=== PATIENT | male | born 1970 | race Caucasian/White ===

== ENCOUNTER 2019-04-28 11:54 | Observation (INO) | payer OTHER ==
[~2019-04-28] VITALS: Wt 111.3 kg
[2019-04-28] MEDS ORDERED: NITROGLYCERIN 2% 1 GM OINT PKT TD STA (12:45)
[2019-04-28] MEDS ORDERED: NITROGLYCERIN (SL) 0.4 MG TAB SL PRN (13:00)
[2019-04-28] MEDS ORDERED: ATOR10TA65 PO (13:43)
[2019-04-28] MEDS ORDERED: AMLO-218 PO (13:44)
[2019-04-28] MEDS ORDERED: METF500T24 PO (13:44)
[2019-04-28] MEDS ORDERED: ONDANSETRON 4 MG INJ IV PRN (14:00)
[2019-04-28] MEDS ORDERED: ACETAMINOPHEN 325 MG TAB PO PRN ×2 (14:00→17:00)
[2019-04-28] MEDS ORDERED: METOPROLOL 100 MG TAB PO STA (14:01)
--- NOTE | 2019-04-28 14:40 | ERD ---
ER Documentation Chief Complaint Chief Complaint CHEST PAIN FOR THE PAST WEEK INTERMITTENT. TODAY GOT WORSE. MILD SOB HPI Patient is a 48-year-old male with hypertension and prediabetes who presents with chest pain. He said that he started feeling weak about 1 hour ago. He had shortness of breath and chest pressure. He feels dizzy. He had nausea but no vomiting. The chest pressure was left-sided. It comes and goes. He felt this on as well and almost passed out. The patient said that he would prefer to be seen by Dr. Dunne's cardiology group. Upon review of old medical records this is the patient's first visit to the emergency department. ROS All systems reviewed and are negative except as per history of present illness. Medications Home Meds Reported Medications Amlodipine Besylate* (Norvasc*) 10 Mg Tablet, 10 MG PO DAILY, TAB 04/28/19 Metformin Hcl* (Metformin Hcl*) 500 Mg Tablet, 500 MG PO WITH BREAKFAST, #30 TAB 04/28/19 Atorvastatin Calcium (Atorvastatin Calcium) 10 Mg Tablet, 10 MG PO QHS, #30 TAB 04/28/19 Allergies Allergies: Coded Allergies: aspirin (Verified Allergy, Unknown, 04/28/19) PMhx/Soc Medical and Surgical Hx: pt denies Medical Hx, pt denies Surgical Hx Hx Alcohol Use: Yes Hx Substance Use: No Hx Tobacco Use: Yes Smoking Status: Never smoker FmHx Family History: coronary disease Physical Exam Vitals Vital Signs Date Temp Pulse Resp B/P (MAP) Pulse Ox O2 O2 Flow FiO2 Time Delivery Rate 04/28/19 66 20 132/71 99 Room Air 14:08 (91) 04/28/19 97.7 91 18 163/95 99 11:57 (117) Physical Exam Const: No acute distress Head: Atraumatic Eyes: Normal Conjunctiva ENT: Normal External Ears, Nose and Mouth. Neck: Full range of motion. No meningismus. Resp: Clear to auscultation bilaterally Cardio: Regular rate and rhythm, no murmurs Abd: Soft, non tender, non distended. Normal bowel sounds Skin: No petechiae or rashes Back: No midline or flank tenderness Ext: No cyanosis, or edema Neur: Awake and alert Psych: Normal Mood and Affect Result Diagram: 04/28/19 1252 04/28/19 1252 Results 24 hrs Laboratory Tests Test 04/28/19 12:52 White Blood Count 5.8 10^3/ul Red Blood Count 5.29 10^6/ul Hemoglobin 14.9 g/dl Hematocrit 44.2 % Mean Corpuscular Volume 83.6 fl Mean Corpuscular Hemoglobin 28.2 pg Mean Corpuscular Hemoglobin Concent 33.7 g/dl Red Cell Distribution Width 13.2 % Platelet Count 157 10^3/UL Mean Platelet Volume 10.2 fl Immature Granulocytes % 0.500 % Neutrophils % 54.6 % Lymphocytes % 35.2 % Monocytes % 6.2 % Eosinophils % 2.1 % Basophils % 1.4 % Nucleated Red Blood Cells % 0.0 /100WBC Immature Granulocytes # 0.030 10^3/ul Neutrophils # 3.2 10^3/ul Lymphocytes # 2.0 10^3/ul Monocytes # 0.4 10^3/ul Eosinophils # 0.1 10^3/ul Basophils # 0.1 10^3/ul Nucleated Red Blood Cells # 0.0 10^3/ul D-Dimer 353.84 ng/ml D-Dimer Comment Sodium Level 141 mmol/L Potassium Level 4.0 mmol/L Chloride Level 105 mmol/L Carbon Dioxide Level 25 mmol/L Anion Gap 11 Blood Urea Nitrogen 9 mg/dl Creatinine 0.60 mg/dl Est Glomerular Filtrat Rate mL/min > 60 mL/min Glucose Level 172 mg/dl Calcium Level 9.6 mg/dl Troponin I < 0.012 ng/ml Current Medications Medications Dose Sig/Mike Start Time Status Last (Trade) Ordered Route PRN Stop Time Admin Dose Reason Admin 1 inch ONCE STAT 04/28/19 DC 04/28/19 Nitroglycerin TD 12:45 04/28/19 13:12 12:47 (Nitroglyceri n 2% Oint) 1 tab Q5M UP TO 3 04/28/19 Nitroglycerin DOSES PRN 13:00 SL .CHEST (Nitroglyceri PAIN n (Sl Tab) 0.4 Mg) Ondansetron 4 mg ER BRIDGE 04/28/19 HCl (Zofran PRN IV 14:00 04/29/19 Inj) NAUSEA/VOMITI 13:59 NG 650 mg ER BRIDGE 04/28/19 Acetaminophen PRN PO 14:00 04/29/19 (Tylenol .MILD PAIN 13:59 Tab) 1-3 OR TEMP Metoprolol 100 mg ONCE STAT 04/28/19 DC Tartrate PO 14:01 04/28/19 (Lopressor) 14:08 Procedures/MDM EKG read by me: Rate/Rhythm: Regular rate and rhythm at a normal rate Intervals: Normal Impression: No evidence of ischemia or arrhythmia Chest x-ray negative per radiology. Smoking Cessation Therapy: Pt. was lectured for greater than 3 minutes on the health risks of continued smoking and the benefits of cessation. Patient is a 48-year-old male with multiple cardiac risk factors who presents with chest pain. I am concerned for potential acute coronary syndrome. D-dimer was negative and I doubt pulmonary embolism or aortic dissection at this time. I doubt pneumonia or pneumothorax. The patient was given nitroglycerin. He is allergic to aspirin and says that his face swells up when he takes it so he was not given aspirin. The patient will be admitted to the care of Dr. Yang to a telemetry observation bed as he has [employer] insurance. He was seen by Dr. Ricks in consultation. Departure Diagnosis: Primary Impression: Chest pain Chest pain type: unspecified Qualified Codes: R07.9 - Chest pain, unspecified Condition: QUIN Byers MD Apr 28, 2019 14:40
--- NOTE | 2019-04-28 15:24 | CONS ---
Assessment/Plan Assessment/Plan Hospital Course (Demo Recall) Chest pain Shortness of breath Diabetes Hypertension Dyslipidemia Tobacco use Patient with chest pain at rest which is been off and on over the past few days. Initial cardiac enzymes are negative, ECG with no significant ischemic abnormalities. Given his multiple risk factors, patient with further ischemic work-up. Will obtain serial cardiac enzymes, echocardiogram Initial plans for CT coronary angiogram, in discussion with radiology, there is seems to be issues with the imaging software. If not able to be performed, will proceed with nuclear cardiac perfusion study once serial troponins are negative Consultation Date/Type/Reason Admit Date/Time Type of Consult Cardiology Reason for Consultation Chest pain Date/Time of Note DATE: 04/28/19 TIME: 15:18 Hx of Present Illness This is a 48-year-old male with past medical history of hypertension, diabetes, dyslipidemia who presents with chest pain. Symptoms have been off and on since yesterday. Symptoms came about while patient was driving. He denies exertional chest pain but does get shortness of breath with exertion which has been going on for years. He also complains of a chronic numbness in his fourth and fifth finger which is going on for 6 months. This is not worse with exertion or improved. 12 point review of systems was performed with all pertinent positives and negatives mentioned above and all else is negative Past Medical History Medical History: diabetes, high cholesterol, hypertension Home Meds Reported Medications Amlodipine Besylate* (Norvasc*) 10 Mg Tablet, 10 MG PO DAILY, TAB 04/28/19 Metformin Hcl* (Metformin Hcl*) 500 Mg Tablet, 500 MG PO WITH BREAKFAST, #30 TAB 04/28/19 Atorvastatin Calcium (Atorvastatin Calcium) 10 Mg Tablet, 10 MG PO QHS, #30 TAB 04/28/19 Medications Current Medications Nitroglycerin (Nitroglycerin (Sl Tab) 0.4 Mg) 1 tab Q5M UP TO 3 DOSES PRN SL .CHEST PAIN; Start 04/28/19 at 13:00 Ondansetron HCl (Zofran Inj) 4 mg ER BRIDGE PRN IV NAUSEA/VOMITING; Start 04/28/19 at 14:00; Stop 04/29/19 at 13:59 Acetaminophen (Tylenol Tab) 650 mg ER BRIDGE PRN PO .MILD PAIN 1-3 OR TEMP; Start 04/28/19 at 14:00; Stop 04/29/19 at 13:59 Allergies: Coded Allergies: aspirin (Verified Allergy, Unknown, 04/28/19) Social History Alcohol Use: occasionally Smoking Status: Current every day smoker 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 Exam/Review of Systems Vital Signs Vitals Vital Signs Date Temp Pulse Resp B/P (MAP) Pulse Ox O2 O2 Flow FiO2 Time Delivery Rate 04/28/19 66 20 132/71 99 Room Air 14:08 (91) 04/28/19 97.7 11:57 Exam Constitutional: alert, oriented (No apparent distress) Head: normocephalic Respiratory: clear to auscultation, normal air movement Cardiovascular: regular rate and rhythm (S1-S2 heard) Gastrointestinal: soft, non-tender, bowel sounds Extremities: other (No significant edema) Labs Result Diagram: 04/28/19 1252 04/28/19 1252 Results 24hrs Laboratory Tests Test 04/28/19 12:52 White Blood Count 5.8 Red Blood Count 5.29 Hemoglobin 14.9 Hematocrit 44.2 Mean Corpuscular Volume 83.6 Mean Corpuscular Hemoglobin 28.2 L Mean Corpuscular Hemoglobin Concent 33.7 Red Cell Distribution Width 13.2 Platelet Count 157 Mean Platelet Volume 10.2 Immature Granulocytes % 0.500 H Neutrophils % 54.6 Lymphocytes % 35.2 Monocytes % 6.2 Eosinophils % 2.1 Basophils % 1.4 Nucleated Red Blood Cells % 0.0 Immature Granulocytes # 0.030 Neutrophils # 3.2 Lymphocytes # 2.0 Monocytes # 0.4 Eosinophils # 0.1 Basophils # 0.1 Nucleated Red Blood Cells # 0.0 D-Dimer 353.84 D-Dimer Comment Sodium Level 141 Potassium Level 4.0 Chloride Level 105 Carbon Dioxide Level 25 Anion Gap 11 Blood Urea Nitrogen 9 Creatinine 0.60 L Est Glomerular Filtrat Rate mL/min > 60 Glucose Level 172 Calcium Level 9.6 Troponin I < 0.012 Imaging Imaging ECG with sinus rhythm at 88 bpm, incomplete right bundle branch block with QRS 106 ms, no significant ischemic ST abnormalities Medications Medications Current Medications Nitroglycerin (Nitroglycerin (Sl Tab) 0.4 Mg) 1 tab Q5M UP TO 3 DOSES PRN SL .CHEST PAIN; Start 04/28/19 at 13:00 Ondansetron HCl (Zofran Inj) 4 mg ER BRIDGE PRN IV NAUSEA/VOMITING; Start 04/28/19 at 14:00; Stop 04/29/19 at 13:59 Acetaminophen (Tylenol Tab) 650 mg ER BRIDGE PRN PO .MILD PAIN 1-3 OR TEMP; Start 04/28/19 at 14:00; Stop 04/29/19 at 13:59 Feliz Ricks DO Apr 28, 2019 15:24
[2019-04-28 16:01] VITALS: PULSE 69
--- NOTE | 2019-04-28 16:20 | RADRPT ---
Echocardiogram Report Patient Name: RODRI KAYPatient ID: [id number] : 1970 (49y )Study Date: 04/28/2019 2:42:17 PM Gender: MAccession #: [id number] Tech: Joan Carreno RDCS Location: [facility] Ref.Physician: FELIZ RICKS Height(Cm): BSA: Weight(Kg): Quality: Technically Difficult StudyOrder Physician: FELIZ RICKS Account #: Procedures: Echocardiographic Report: Transthoracic echocardiogram with complete 2D, M-Mode, and doppler examination. Indications: Chest Pain. Measurements: 2D/M Mode Doppler Measurement Value Normal Range Measurement Value Normal Range LVIDd 2D 5.6 [ 4.2 - 5.8 ] cm AV Peak Keith 1.1 [ 100.0 - 170.0 ] cm/sec LVIDs 2D 3.7 [ 2.5 - 4.0 ] cm AV Peak PG 5.0 [ 2.0 - 9.0 ] mmHg LVPWd 2D 1.0 [ 0.6 - 1.0 ] cm LVOT Peak Keith 1.0 [ 70.0 - 110.0 ] cm/sec IVSd 2D 1.0 [ 0.6 - 1.0 ] cm LVOT Peak PG 4.0 [ 2.0 - 6.0 ] mmHg IVS/LVPW 2D 1.0 ratio MV E Peak Keith 0.8 [ 60.0 - 130.0 ] cm/sec AoR Diam 2D 3.1 [ 2.6 - 3.4 ] cm MV A Peak Keith 0.7 [ 100.0 - 120.0 ] cm/sec LA/Ao 2D 1 ratio MV E/A 1.1 [ 0.8 - 1.5 ] ratio LA Dimen 2D 3.4 [ 3.0 - 4.0 ] cm MV Decel Time 225 [ 104 - 258 ] msec Lat E` Keith 0.1 [ 10.0 - 15.0 ] cm/sec MV E/A 1.1 [ 0.8 - 1.5 ] ratio TR Peak Keith 2.0 [ 100.0 - 280.0 ] cm/sec TR Peak PG 16.0 mmHg RVSP 19.0 [ 10.0 - 36.0 ] mmHg RA Pressure 3.0 mmHg Findings: Left Ventricle: Normal left ventricular systolic function. Normal left ventricular cavity size. Normal left ventricular wall thickness. Ejection fraction is visually estimated at 65 %. Tissue Doppler/Mitral Doppler indices are within normal limits. Right Ventricle: Normal right ventricular size. Normal right ventricular systolic function. Left Atrium: The left atrium is normal in size. Right Atrium: The right atrium is normal in size. Mitral Valve: Normal appearance and function of the mitral valve with trace physiologic regurgitation. Aortic Valve: Normal appearance of the aortic valve. No significant aortic stenosis or insufficiency. Tricuspid Valve: Normal appearance and function of the tricuspid valve with trace physiologic regurgitation. Normal right ventricular systolic pressure. The estimated Peak RVSP is 16 mmHg. Pulmonic Valve: Normal pulmonic valve appearance. Pericardium: Normal pericardium with no significant pericardial effusion. Aorta: Normal aortic root. IVC: Normal size and normal respiratory collapse consistent with normal right atrial pressure. Conclusions: Normal left ventricular systolic function. Normal left ventricular cavity size. Normal left ventricular wall thickness. Ejection fraction is visually estimated at 65 %. Tissue Doppler/Mitral Doppler indices are within normal limits. Normal right ventricular size. Normal right ventricular systolic function. The left atrium is normal in size. The right atrium is normal in size. No significant valvular stenosis or regurgitation seen. Normal pericardium with no significant pericardial effusion. Electronically Signed By: Feliz Ricks 2019-04-28 16:20:12 PDT
[2019-04-28] MEDS ORDERED: ZOLPIDEM 5 MG TAB PO PRN (17:00)
[2019-04-28] MEDS ORDERED: NITROGLYCERIN AEROSOL (4.9 GM) ONE (17:18)
[2019-04-28] MEDS ORDERED: SOD CHLORIDE 0.9% 100 ML ONE (18:12)
[2019-04-28] MEDS ORDERED: IOHEXOL 100 ML ONE (18:12)
--- NOTE | 2019-04-28 18:21 | HP ---
DATE OF ADMISSION: 04/28/2019 CHIEF COMPLAINT: Chest pain. HISTORY OF PRESENT ILLNESS: A 48-year-old male with history of hypertension, type 2 diabetes mellitu s and hyperlipidemia presented to emergency room with complaint of chest pain. The symptoms started the day prior to admission. The patient denies exertional chest pain; however, he does get short of breath at times with exertion. No nausea, vomiting or diaphoresis. Initial evaluation was unremarkable. Cardiac enzyme was normal. EKG did not show any significant is chemic changes. A 2D echo showed normal ejection fraction. The patient was evaluated by Dr. Ricks and CT coronary angiogram was recommended. PAST MEDICAL HISTORY: 1. Hypertension. 2. Hyperlipidemia. 3. Type 2 diabetes mellitus. MEDICATIONS PRIOR TO ADMISSION: 1. Amlodipine 10 mg daily. 2. Atorvastatin 10 mg at bedtime. 3. Metformin 500 mg daily. SOCIAL HISTORY: The patient lives at home. He admits to smoking cigarettes. PHYSICAL EXAMINATION: GENERAL: Well-developed, well-nourished male who is in no apparent distress. VITAL SIGNS: Stable. He is afebrile. HEENT: Extraocular muscles intact. Pupils equal and reactive to light bilaterally. Sclerae anicter ic. Oropharynx is clear and moist. NECK: Supple. No JVD. No carotid bruits. LUNGS: Clear to auscultation bilaterally. CARDIAC: Regular rate and rhythm. No murmurs or gallops. ABDOMEN: Soft, nontender, nondistended. Normoactive bowel sounds. EXTREMITIES: No clubbing, cyanosis or edema. NEUROLOGICAL: Nonfocal. LABORATORY DATA: CBC is within normal limit. Basic metabolic panel is normal. Troponin is less shon n 0.012. ASSESSMENT: A 48-year-old male with on-and-off chest pain since the day prior to admission. The pat ient has multiple cardiac risk factors but there is no clear evidence of ischemia. PLAN: Place in tele observation. Resume selected home medications. Proceed with CT coronary angiog ijeoma. Cardiology followup is appreciated. Dictated By: GHANSHYAM CORREIA/KAYLA Conf#: [id number] DID#: [id number]
[2019-04-28 20:00] VITALS: BP 130/76; PULSE 70; PULSE 78; RESP 19
[2019-04-28] MEDS ORDERED: ATORVASTATIN 10 MG TAB PO SCH (21:00)
--- NOTE | 2019-04-28 21:25 | PDOCDIS ---
Discharge Instructions CONDITION [id number] Patient Condition: [id number] Good HOME CARE INSTRUCTIONS: [id number] Diet Instructions: [id number] Activity Restrictions: [id number] No Restrictions FOLLOW UP/APPOINTMENTS Follow-up Plan pcp 1 week GHANSHYAM ALVAREZ MD Apr 28, 2019 21:25
[2019-04-29] MEDS ORDERED: AMLODIPINE 10 MG TAB PO SCH (09:00)
--- NOTE | 2019-04-30 02:20 | DS ---
DATE OF ADMISSION: 04/28/2019 DATE OF DISCHARGE: 04/28/2019 DIAGNOSES: 1. A 48-year-old male with atypical chest pain. 2. Hypertension. 3. Hyperlipidemia. 4. Type 2 diabetes mellitus. PROCEDURES DURING HOSPITALIZATION: Cardiac CT angiogram and 2D echo. HOSPITAL COURSE: A 48-year-old male with multiple cardiac risk factors, presented to emergency room with complaint of chest pain, which started the day prior to admission. The patient had no additiona l symptoms. There were no associated symptoms except mild shortness of breath at times. He was eval uated by Dr. Ricks. CTA of the coronary arteries was recommended. The study showed a total calcium score of 0. All coronary vessels were found to be normal. The patient also had a 2D echocardiogram , which showed a normal ejection fraction of 65% and no other abnormalities. DISPOSITION: Discharged home in a stable condition. He was asked to follow up with the PCP and cont inue his home medications. Dictated By: GHANSHYAM CORREIA/KAYLA Conf#: [id number] DID#: [id number] CC: QUENTIN RICKS DO;*EndCC*
== END 2019-04-28 22:40 | disposition home or self-care (01) ==
LOC: E/R 11:54 → TEL 13:55
PROVIDERS: ADMIT Internal Medicine; ATTEND Internal Medicine
DX: R07.89 Other chest pain (principal); I10 Essential (primary) hypertension; E78.5 Hyperlipidemia, unspecified; E11.9 Type 2 diabetes mellitus without complications; Z79.84 Long term (current) use of oral hypoglycemic drugs; F17.200 Nicotine dependence, unspecified, uncomplicated
CPT/HCPCS: 36415; 71045; 75574; 80048; 82550; 82553; 84484; 85025; 85378; 93005; 93306; Q9967; Z7500; Z7502; Z7610; G0378